=== PATIENT | male | born 2005 | race Caucasian/White ===

== ENCOUNTER 2025-05-26 07:08 | Emergency (ER) | payer OTHER ==
[~2025-05-26] VITALS: Ht 175.3 cm; Wt 87.7 kg
[2025-05-26] MEDS: ALPRAZolam 0.25 MG TAB PO ONE (07:55)
[2025-05-26 08:15] LABS: BASO # 0.0 10^3/uL (0.0-0.2); BASO % 0.6 % (0.0-1.0); EOS # 0.1 10^3/uL (0.0-0.5); EOS % 1.0 % (0.0-3.0); LYMPH # 2.7 10^3/uL (1.5-5.0); LYMPH % 42.5 % (24.0-44.0); MONO # 0.6 10^3/uL (0.0-0.8); MONO % 9.0 % (2.0-8.0); NEUTROPHILS # 3.0 10^3/uL (1.5-8.5); NEUTROPHILS % 46.7 % (36.0-66.0); PLATELET COUNT, AUTOMATED 240 10^3/uL (150-450)
[2025-05-26 08:36] LABS: CK-MB VALUE MASS < 1.0 NG/ML (<3.6)
[2025-05-26 08:38] LABS: ALT/SGPT 16 U/L (7.0-40); AST/SGOT 22 U/L (<34)
[2025-05-26 08:54] LABS: CPK CREATINE PHOSPHOKINASE 134 U/L (46-171)
[2025-05-26] MEDS: POTASSIUM CHLORIDE 10MEQ SR TABLET PO ONE (09:28)
[2025-05-26 09:30] VITALS: BP 134/72; TEMP 97; O2SAT 98
== END 2025-05-26 09:38 | disposition home or self-care (01) ==
LOC: M ED 07:08
DX: R07.9 Chest pain, unspecified (principal); F43.29 Adjustment disorder with other symptoms; J90 Pleural effusion, not elsewhere classified